=== PATIENT | female | born 2000 | race Caucasian/White ===

== ENCOUNTER 2020-07-04 16:20 | Emergency (ER) | payer MEDICAID, SELFPAY ==
[2020-07-04 16:26] VITALS: BP 111/64; PULSE 74; RESP 16; TEMP 36.3; O2SAT 98; BMI 34.3
[2020-07-04 17:11] LABS: UPreg QC Valid YES; Urine Pregnancy NEGATIVE (NEGATIVE)
--- NOTE | 2020-07-04 17:44 | ED.FEMALEGU ---
HPI - Female Genitourinary General Chief complaint: Urogenital-Female Stated complaint: TEST Source: patient Mode of arrival: ambulatory Limitations: no limitations History of Present Illness HPI Narrative: 19-year-old female with no significant past medical history presents with suspicion of . She states that over the past 2 weeks she is unable to eat without vomiting, has been nauseous, and feels bloated. She also noticed that over the past week her urine has been dark and has a strong odor. She did not describe any vaginal discharge, vaginal bleeding, fevers, chills, travel outside the country or sick contacts, denies chest pain or pressure, palpitations, abdominal pain, diarrhea, constipation, melena, hematochezia, and edema. MD elicited complaint: suspected Onset (ago): week(s) (2) Severity: moderate Severity scale (1-10): 5 Vaginal discharge: none Vaginal bleeding: none Urinary symptoms: Foul Smelling Urine Relieving factors: none Associated symptoms: nausea and vomiting Sexual activity: Yes Patient : No Related Data Previous Rx's Medication Instructions Recorded nitrofurantoin monohyd/m-cryst 100 mg PO Q12H 7 Days #14 cap 07/04/20 [Macrobid] phenazopyridine [Pyridium] 200 mg PO TID PRN #6 tab 07/04/20 Allergies Allergy/AdvReac Type Severity Reaction Status Date / Time No Known Allergies Allergy Unverified 11/24/19 16:54 [No Known Allergies*] Review of Systems Review of Systems: Constitutional: No Weight loss, No Fever, No Chills, No Night Sweats, No Fatigue, No Malaise ENT/Mouth: No Hearing loss, No Ear Pain, No Nasal Congestion, No Sinus Pain, No Hoarseness, No sore throat, No Rhinorrhea, No Swallowing Difficulty Eyes: No Eye Pain, No Swelling, No Redness, No Foreign Body, No Discharge, No Vision Changes Cardiovascular: No Chest Pain, No SOB, No Dyspnea on Exertion, No Orthopnea, No Edema, No Palpitations Respiratory: No Cough, No Sputum, No Wheezing, No Smoke Exposure, No Dyspnea Gastrointestinal: Positive Nausea, Positive Vomiting, no Diarrhea, no abdominal Pain, No Hematochezia, No Melena Genitourinary: no irregular bleeding, No Dysuria, No Urinary Frequency, No Hematuria, No Urinary Incontinence, No Urgency, No Flank Pain, No Urinary Flow Changes, No Hesitancy Musculoskeletal: No joint pain, No Myalgias, No Joint Swelling Skin: No Skin Lesions, No rash Neuro: No Weakness, No Numbness, No Paresthesias, No Loss of Consciousness, No Dizziness, No Headache Psych: No Anxiety/Panic, No Depression, No SI/HI/AH/VH, No Social Issues Heme/Lymph: No Bruising, No Bleeding,No Lymphadenopathy Endocrine: No Polyuria, No Polydipsia, No Temperature Intolerance Yes all other systems are reviewed and are negative [facility] Past Medical History Attestation statement: The following information was validated with the patient. Source: old records reviewed Medical History (Updated 07/05/20 @ 00:00 by Polly Omalley) No known health problems Social History Social History Smoked in Last 30 Days: No Use of substances other than those prescribed or required for medical reasons: Yes Substance Use Type: Marijuana Substance Use Frequency: Socially Advance Directives: No Advance Directives Information Provided: Yes Physical Exam Vital Signs: Vital Signs: Last Vital Signs Temp 98.1 F 07/04/20 19:57 Pulse 61 07/04/20 19:57 Resp 18 07/04/20 19:57 BP 106/63 07/04/20 19:57 Pulse Ox 100 07/04/20 19:57 Body Mass Index 34.3 Appearance: Alert. Oriented X3. No acute distress. Eyes: Pupils equal, round and reactive to light. ENT: Pharynx normal. Neck: Normal inspection. Neck supple. CVS: Normal heart rate and rhythm. Pulses normal. Respiratory: No respiratory distress. Breath sounds normal. Abdomen: Soft and nontender. Skin: Skin warm and dry. Normal skin color. Normal skin turgor. Extremities: No lower extremity edema. Neuro: No motor deficit. No sensory deficit. Course Course Course Narrative: 19-year-old female presents with multiple abdominal complaints with suspicion of . Her test is negative however based on her inability to eat, nausea vomiting, and foul-smelling urine will order CBC, Chem 7, urinalysis. Lab values are unremarkable, however urinalysis is positive for leukocyte esterase and bacteria. Will treat for UTI. Patient verbalized understanding of and agrees to plan of care discharge home. MDM - Female Genitourinary Differential Diagnosis Differential diagnosis: Likely urinary tract infection Medical Records Attestation: I reviewed the patient's medical records. Lab Data Attestation: I reviewed the patient's lab results. Result diagrams: 07/04/20 18:23 07/04/20 18:23 Labs: Lab Results 07/04/20 07/04/20 07/04/20 Range/Units 16:51 18:22 18:23 WBC 7.0 (4.8-10.8) X10*3/uL RBC 4.14 L (4.20-5.50) X10*6/uL Hgb 12.3 (12.0-16.0) g/dl Hct 36.9 L (37-47) % MCV 89.1 (80-98) fL MCH 29.7 (27.0-33.0) pg MCHC 33.3 (31.0-35.0) g/dl RDW 13.0 (11.0-16.0) % Plt Count 258 (160-400) X10*3/uL MPV 11.2 (9.4-12.3) fL Immature Gran % (Auto) 0.1 (0.0-0.4) % Neut % (Auto) 58.6 (45-73) % Lymph % (Auto) 35.6 (20-40) % [place] % (Auto) 5.0 (2-11) % Eos % (Auto) 0.4 (0-4) % Baso % (Auto) 0.3 (0-2) % Lymph # (Auto) 2.5 (1.2-4.9) X10*3/uL [place] # (Auto) 0.4 (0.1-1.2) X10*3/uL Eos # (Auto) 0.0 (0.0-0.4) X10*3/uL Baso # (Auto) 0.0 (0.0-0.2) X10*3/uL Abs Immat Gran (auto) 0.01 (0.00-0.03) X10*3/uL Absolute Neuts (auto) 4.1 (2.0-8.3) X10*3/uL Absolute Nucleated RBC 0.000 (0.0-0.012) X10*3/uL Nucleated RBC % (auto) 0.0 (0.0-0.2) /100WBC Sodium (135-145) mmol/L Potassium (3.3-5.1) mmol/L Chloride (96-108) mmol/L Carbon Dioxide (22-29) mmol/L Anion Gap (12-20) BUN (9-16) mg/dL Creatinine (0.5-1.4) mg/dL Estim Creat Clear Calc Estimated GFR POC Glucose (60-115) mg/dL Random Glucose (60-115) mg/dL Calcium (8.4-10.2) mg/dL Total Bilirubin (0.0-1.0) mg/dL Direct Bilirubin (0.0-0.5) mg/dL AST (5-31) U/L ALT (0-31) U/L Alkaline Phosphatase (39-117) U/L Total Protein (6.5-8.0) g/dL Albumin (3.5-5.0) g/dL Lipase (8-78) U/L Urine Color YELLOW Urine Appearance CLEAR Urine pH 6.0 (5.0-8.0) Ur Specific [place] 1.025 (1.005-1.025) Urine Protein NEG (NEG-TRACE) MG/DL Urine Glucose (UA) NEG (NEG) MG/DL Urine Ketones 15 (NEG) MG/DL Urine Blood NEG (NEG) Urine Nitrite NEG (NEG) Ur Leukocyte Esterase 1+ H (NEG) Urine RBC 0 (0) /HPF Urine WBC 1-4 (0-4) /HPF Ur Squamous Epith Cells 1+ /LPF Urine Bacteria 1+ /LPF Urine Test NEGATIVE (NEGATIVE) 07/04/20 07/04/20 Range/Units 18:23 18:53 WBC (4.8-10.8) X10*3/uL RBC (4.20-5.50) X10*6/uL Hgb (12.0-16.0) g/dl Hct (37-47) % MCV (80-98) fL MCH (27.0-33.0) pg MCHC (31.0-35.0) g/dl RDW (11.0-16.0) % Plt Count (160-400) X10*3/uL MPV (9.4-12.3) fL Immature Gran % (Auto) (0.0-0.4) % Neut % (Auto) (45-73) % Lymph % (Auto) (20-40) % [place] % (Auto) (2-11) % Eos % (Auto) (0-4) % Baso % (Auto) (0-2) % Lymph # (Auto) (1.2-4.9) X10*3/uL [place] # (Auto) (0.1-1.2) X10*3/uL Eos # (Auto) (0.0-0.4) X10*3/uL Baso # (Auto) (0.0-0.2) X10*3/uL Abs Immat Gran (auto) (0.00-0.03) X10*3/uL Absolute Neuts (auto) (2.0-8.3) X10*3/uL Absolute Nucleated RBC (0.0-0.012) X10*3/uL Nucleated RBC % (auto) (0.0-0.2) /100WBC Sodium 139 (135-145) mmol/L Potassium 4.4 (3.3-5.1) mmol/L Chloride 105 (96-108) mmol/L Carbon Dioxide 24 (22-29) mmol/L Anion Gap 14 (12-20) BUN 8 L (9-16) mg/dL Creatinine 0.83 (0.5-1.4) mg/dL Estim Creat Clear Calc 96.8 Estimated GFR > 60 POC Glucose 75 (60-115) mg/dL Random Glucose 89 (60-115) mg/dL Calcium 10.2 (8.4-10.2) mg/dL Total Bilirubin 0.5 (0.0-1.0) mg/dL Direct Bilirubin 0.3 (0.0-0.5) mg/dL AST 12 (5-31) U/L ALT 7 (0-31) U/L Alkaline Phosphatase 62 (39-117) U/L Total Protein 7.7 (6.5-8.0) g/dL Albumin 4.7 (3.5-5.0) g/dL Lipase 27 (8-78) U/L Urine Color Urine Appearance Urine pH (5.0-8.0) Ur Specific [place] (1.005-1.025) Urine Protein (NEG-TRACE) MG/DL Urine Glucose (UA) (NEG) MG/DL Urine Ketones (NEG) MG/DL Urine Blood (NEG) Urine Nitrite (NEG) Ur Leukocyte Esterase (NEG) Urine RBC (0) /HPF Urine WBC (0-4) /HPF Ur Squamous Epith Cells /LPF Urine Bacteria /LPF Urine Test (NEGATIVE) Discharge Plan Discharge Clinical Impression: Urinary tract infection Patient Disposition: Home, Self-Care Instructions: Urinary Tract Infection in Women (ED) Additional Instructions: You presented to the emergency department requesting a test. Your test is negative. Urinalysis is positive for UTI. We are prescribing Macrobid. This medication is on antibiotic. Please complete the entire course of this medication. We are also prescribing Pyridium for bladder spasms and pain. This medication will turn your urine bright orange and this is a normal side effect of this medication. Thank you for choosing this emergency department for evaluation. Please follow-up with primary care physician as needed. Return to the emergency department for any new, concerning, or worsening symptoms. Prescriptions: New phenazopyridine [Pyridium] 200 mg tablet 200 mg PO TID PRN (Reason: pain) Qty: 6 RF: 0 nitrofurantoin monohyd/m-cryst [Macrobid] 100 mg capsule 100 mg PO Q12H 7 Days Qty: 14 RF: 0 Interventions: ED Discharge Assessment Last Done: 07/04/20 20:11 Discharge Date/Time: 07/04/20 20:13
[2020-07-04 18:33] LABS: MANUAL DIFF FLAG NO
[2020-07-04 18:36] LABS: Basophils Percent Auto 0.3 % (0-2); Eosinophils Percent Auto 0.4 % (0-4); Hematocrit 36.9 % (37-47); Hemoglobin 12.3 g/dl (12.0-16.0); Imm Gran Abs Auto 0.01 X10*3/uL (0.00-0.03); Imm Gran Pct Auto 0.1 % (0.0-0.4); Lymphocytes Absolute Auto 2.5 X10*3/uL (1.2-4.9); Lymphocytes Percent Auto 35.6 % (20-40); Mean Corpuscular HGB Conc 33.3 g/dl (31.0-35.0); Mean Corpuscular Hemoglobin 29.7 pg (27.0-33.0); Mean Corpuscular Volume 89.1 fL (80-98); Mean Platelet Volume 11.2 fL (9.4-12.3); Monocytes Absolute Auto 0.4 X10*3/uL (0.1-1.2); Neutrophils Absolute Auto 4.1 X10*3/uL (2.0-8.3); Neutrophils Percent Auto 58.6 % (45-73); Platelet Count 258 X10*3/uL (160-400); Red Blood Count 4.14 X10*6/uL (4.20-5.50)
[2020-07-04 18:37] LABS: Glucose Urine UA NEG (NEG); Leukocyte Esterase Urine 1+ (NEG); Nitrite Urine NEG (NEG); Specific Gravity - Urine 1.025 (1.005-1.025); UACC Culture Trigger YES; Urine Blood NEG (NEG); Urine Ketones 15 MG/DL (NEG); Urine Protein NEG (NEG-TRACE)
[2020-07-04 18:38] LABS: Appearance Urine CLEAR; Color Urine YELLOW
[2020-07-04 18:43] LABS: Bacteria Urine 1+ /LPF; RBC Urine 0 /HPF (0); Squamous Epithelial Cell Urine 1+ /LPF
[2020-07-04 18:59] LABS: Glucose, Whole Blood 75 mg/dL (60-115)
[2020-07-04 19:01] LABS: Alanine Aminotransferase 7 U/L (0-31); Albumin Level 4.7 g/dL (3.5-5.0); Alkaline Phosphatase 62 U/L (39-117); Anion Gap 14 (12-20); Aspartate Amino Transferase 12 U/L (5-31); Bilirubin Direct 0.3 mg/dL (0.0-0.5); Bilirubin Total 0.5 mg/dL (0.0-1.0); Blood Urea Nitrogen 8 mg/dL (9-16); Calcium 10.2 mg/dL (8.4-10.2); Carbon Dioxide 24 mmol/L (22-29); Chloride 105 mmol/L (96-108); Creatinine Clr Calc Pharmacy 96.8; Estimated Glomerular Filt Rate > 60; Glucose Random 89 mg/dL (60-115); Lipase 27 U/L (8-78); Potassium 4.4 mmol/L (3.3-5.1); Sodium 139 mmol/L (135-145); Total Protein 7.7 g/dL (6.5-8.0)
[2020-07-04 19:57] VITALS: BP 106/63; PULSE 61; RESP 18; TEMP 36.7; O2SAT 100
[2020-07-04] MEDS: Phenazopyridine HCL 200 MG TABLET PO (20:04)
[2020-07-04] MEDS: Nitrofurantoin Monohyd/M-Cryst 100 MG CAPSULE PO (20:04)
== END 2020-07-04 20:13 | disposition home or self-care (01) ==
LOC: HO.ED 17:55
PROVIDERS: Nurse Practitioner Family; Emergency Provider Internal Medicine
DX: N39.0 Urinary tract infection, site not specified (principal); R30.0 Dysuria; Z79.899 Other long term (current) drug therapy
CPT/HCPCS: 36415; 80048; 80076; 81001; 81003; 81025; 82947; 83690; 85025; 87086; 87088; 87186; 99283; 99284

== ENCOUNTER 2020-09-29 17:44 | Emergency (ER) | payer MEDICAID, SELFPAY ==
--- NOTE | ~2020-09-29 | XR_ITS ---
EXAMINATION: XR SHOULDER, LEFT CLINICAL INFORMATION: Left-sided shoulder pain and decreased range of motion COMPARISON: None TECHNIQUE: Three views of the left shoulder. FINDINGS: The bones and soft tissues are normal. No fracture. Glenohumeral and acromioclavicular alignment is anatomic with normal joint space. No abnormal soft tissue calcifications. XR/XR shoulder LT min 2V IMPRESSION: Normal left shoulder.
[2020-09-29 17:47] VITALS: BP 132/78; PULSE 80; RESP 18; TEMP 36.6; O2SAT 100; BMI 32.3
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
== END 2020-09-29 19:14 | disposition home or self-care (01) ==
PROVIDERS: Emergency Provider Emergency Medicine
DX: S43.402A Unspecified sprain of left shoulder joint, initial encounter (principal); Y04.2XXA Assault by strike against or bumped into by another person, initial encounter; Y93.9 Activity, unspecified; Y92.9 Unspecified place or not applicable; Y99.9 Unspecified external cause status; F12.90 Cannabis use, unspecified, uncomplicated
CPT/HCPCS: 73030; 99283

== ENCOUNTER 2021-02-15 10:26 | Outpatient (REF) | payer MEDICAID, SELFPAY ==
[2021-02-16 03:08] LABS: CT PCR NOT DETECTED (Not Detect.); NG PCR NOT DETECTED (Not Detect.)
[2021-02-16 14:54] LABS: BV Int Neg Control Negative (Negative); BV Int Pos Control Positive (Positive)
== END 2021-02-15 10:27 | disposition home or self-care (01) ==
LOC: HO.LAB 10:26
PROVIDERS: Visit Provider Advanced Practice Midwife
DX: Z01.419 Encounter for gynecological examination (general) (routine) without abnormal findings (principal); Z20.2 Contact with and (suspected) exposure to infections with a predominantly sexual mode of transmission
CPT/HCPCS: 87480; 87491; 87510; 87591; 87660; 88142

== ENCOUNTER 2021-06-25 16:57 | Emergency (ER) | payer MEDICAID, SELFPAY ==
--- NOTE | ~2021-06-25 | XR_ITS ---
EXAMINATION: XR ANKLE, RIGHT CLINICAL INFORMATION: Pain and swelling COMPARISON: None TECHNIQUE: AP, lateral, and mortise views of the right ankle. FINDINGS: The bones and soft tissues are normal. No fracture. Alignment is anatomic. Joint spaces are maintained. No joint effusion. XR/XR ankle RT 2V IMPRESSION: Normal right ankle.
[2021-06-25 17:51] VITALS: BP 109/64; PULSE 80; RESP 16; TEMP 36.3; O2SAT 100; BMI 31.8
[2021-06-25] MEDS: Acetaminophen 325 MG TABLET 650 MG PO (17:55)
--- NOTE | 2021-06-25 19:30 | ED.EXTPRO ---
HPI - Extremity Problem General Chief complaint: Extremity Problem Stated complaint: right ankle pain Time Seen by Provider: 06/25/21 19:30 Source: patient Mode of arrival: ambulatory Limitations: no limitations History of Present Illness HPI Narrative: 20 yo female presenting to the ER with nontraumatic right ankle and right heel pain that started yesterday. Patient reports history of an ankle injury about a year ago that she never had evaluated. She denies any known injury to the ankle or foot now, but [place] the [place] and is on her feet for several hours a day. She thinks she may have twisted her ankle at some point when at work but does not remember completely. She reports the pain is worse today to the point where she can not walk on it and is unable to go to work. She took Motrin earlier today with minimal improvement. MD Complaint: extremity pain and extremity swelling Onset (ago): day(s) (1) Pain Consistency: constant Location: right Severity scale (1-10): 6 Quality: aching Radiation: distal Relieving factors: immobilization Exacerbating factors: weight bearing and palpation Associated symptoms: denies other symptoms Related Data Previous Rx's Medication Instructions Recorded ibuprofen 600 mg tablet 600 mg PO Q6H PRN #20 tab 09/29/20 metronidazole 500 mg tablet 2,000 mg PO ONCE 1 Days #4 tab 02/19/21 naproxen 500 mg tablet 500 mg PO BID PRN #20 tab 06/25/21 Allergies Allergy/AdvReac Type Severity Reaction Status Date / Time fish derived [fish] Allergy Unknown Itching Verified 02/15/21 10:57 gluten Allergy Unknown Itching Verified 02/15/21 10:57 Review of Systems Review of Systems: Constitutional: No Fever, No Chills Cardiovascular: No Chest Pain, No SOB Respiratory: No Cough, No Sputum Musculoskeletal: + joint pain, No Myalgias Skin: No Skin Lesions, No rash Neuro: No Weakness, No Numbness Psych: No Anxiety/Panic, No Depression Heme/Lymph: No Bruising, No Lymphadenopathy PMFSH Past Medical History Medical History No known health problems Social History Social History (Updated 02/15/21 @ 10:59 by Clive Bassett CMA) Alcohol intake: never Patient Tobacco Use Status: Current someday Tobacco user Tobacco use type: Cigarette Cigarettes Per Day: 5 Substance Use Type: Marijuana Advance Directives: No Advance Directives Information Provided: No Gender identity: Female Physical Exam Vital Signs: Vital Signs: Last Vital Signs Temp 97.4 F 06/25/21 17:51 Pulse 80 06/25/21 17:51 Resp 16 06/25/21 17:51 BP 109/64 06/25/21 17:51 Pulse Ox 100 06/25/21 17:51 BMI result Body Mass Index 31.8 Appearance: Alert. Oriented X3. No acute distress. HEENT: normal inspection CVS: Normal heart rate and rhythm. Pulses normal. Respiratory: No respiratory distress. Skin: Skin warm and dry. Normal skin color. Normal skin turgor. No rashes. Extremities: Mild swelling of the lateral malleolus of the right ankle with tenderness both proximally and distally to the malleolus with no crepitus, ecchymosis. She is tender in her heel soft tissue, normal range of motion of the foot and ankle. Neurovascularly intact distally. Neuro: Oriented X 3. No motor deficit. No sensory deficit. Gait not tested due to pain Course Course Course Narrative: 20 y/o female presenting to the ER with nontrauamtic right ankle and heel pain and swelling with difficulty ambulating. She reports history of injury to this ankle about a year ago. On examination she does have some mild swelling of the lateral malleolus with some tenderness. She also have tenderness of the heel, possible plantar fasciitis. Her x-ray is normal. She most likely has a combination of a strained or sprained ankle as well as plantar fasciitis. Treatment is supportive care with rest, NSAIDs, compression, ice, elevation. We discussed management. Stable for DC home with supportive care. Critical Care Time Critical Care Time Critical Care Time: No Discharge Plan Discharge Clinical Impression: Ankle sprain, Plantar fasciitis of right foot Patient Disposition: Home, Self-Care Instructions: Ankle Sprain (DC), Plantar Fasciitis (ED) Additional Instructions: Your x-ray today was normal. Rest your ankle and elevate your foot when possible. Recommend STEVE wrap for support and compression. Use ice several times per day for the next 48 hours. You may bear weight as tolerated. If pain is too severe, use crutches until better. Take the prescribed anti-inflammatory and/or Tylenol as needed for pain. Follow up with your doctor as needed. Prescriptions: New naproxen 500 mg tablet 500 mg PO BID PRN (Reason: pain) Qty: 20 0RF No Action metronidazole 500 mg tablet 2,000 mg PO ONCE 1 Days Qty: 4 0RF Rx Instructions: Take with food, Avoid alcohol and vinegar products ibuprofen 600 mg tablet 600 mg PO Q6H PRN (Reason: pain) Qty: 20 0RF Stand Alone Forms: Work/School Release Interventions: ED Discharge Assessment Last Done: 06/25/21 20:34 Discharge Date/Time: 06/25/21 20:36
== END 2021-06-25 20:36 | disposition home or self-care (01) ==
PROVIDERS: Emergency Provider Emergency Medicine Emergency Medical Services
DX: M72.2 Plantar fascial fibromatosis (principal); M25.571 Pain in right ankle and joints of right foot; F17.210 Nicotine dependence, cigarettes, uncomplicated; Z71.6 Tobacco abuse counseling; Z79.899 Other long term (current) drug therapy
CPT/HCPCS: 73600; 99283; 99284

== ENCOUNTER → 2023-08-06 09:35 | Outpatient (BNV) | payer MEDICAID, SELFPAY ==
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
== END ==
PROVIDERS: Visit Provider Nurse Practitioner Family
DX: F33.1 Major depressive disorder, recurrent, moderate (principal); F43.10 Post-traumatic stress disorder, unspecified; T78.40XA Allergy, unspecified, initial encounter; Z86.59 Personal history of other mental and behavioral disorders; O16.2 Unspecified maternal hypertension, second trimester; Z91.410 Personal history of adult physical and sexual abuse; Z84.89 Family history of other specified conditions
CPT/HCPCS: 96160; 99205